=== PATIENT | female | born 1970 | race Caucasian/White ===

== ENCOUNTER → 2016-07-28 | Day surgery (SDC) | payer BC ==
[2016-07-19 14:31] VITALS: Ht 166.4 cm; Wt 90.9 kg
[~2016-07-28] VITALS: Ht 166.4 cm; Wt 90.9 kg
[~2016-07-28] MED LIST: ATROPINE SULFATE 0.1 MG/ML 5ML SYR IV PRN; DEXAMETHASONE SOD INJ 4 MG/ML VIAL ONE; EpHEDrine SULFATE INJ 50 MG/ML AMP IV PRN; FENTANYL CITRATE INJ 50 MCG/1 ML 2 ML VIAL IV PRN; FENTANYL CITRATE INJ 50 MCG/1 ML 2 ML VIAL ONE; IBUPROFEN 200 MG TAB ONE; IBUPROFEN 600 MG TAB PO PRN; KETOROLAC TROMETHAMINE 30 MG/ML VIAL IV. PRN; KETOROLAC TROMETHAMINE 30 MG/ML VIAL ONE; LACTATED RINGER'S 1000ML 1,000 ML IV SCH; LIDOCAINE HCL 2% 2 ML VIAL (20MG/ML) ONE; METOCLOPRAMIDE HCL INJ 5 MG/ML 2 ML VIAL IV PRN; MIDAZOLAM HCL 1 MG/ML 2ML VIAL ONE; ONDANSETRON INJ 2 MG/ML 2 ML VIAL IV PRN; ONDANSETRON INJ 2 MG/ML 2 ML VIAL ONE; OXYCODONE/ACETAMINOPHEN 5-325 TAB PO PRN; PROPOFOL IV EMULSION 10 MG/ML 20 ML VIAL IV ONE; SODIUM CHLORIDE 0.9% 1000ML 1,000 ML IV SCH
--- NOTE | 2016-07-28 07:06 | History & Physical Bridge - [place] ---
H&P Re-Evaluation Bridge Note: I have examined the patient, reviewed the History & Physical and in the interval since the performance of the History & Physical I have noted the following changes of clinical significance: No changes noted
--- NOTE | 2016-07-28 07:09 | Discharge Instructions-SurgCtr ---
Discharge Instructions Date of Service Jul 28, 2016. Visit Reason for Visit: Abnormal Menses Discharge Discharge Diagnosis / Problem: Hysteroscopy D&C Discharge Goals Goal(s): Specific goals Activity Recommendations Activity Limitations: per Instructions/Follow-up section Lifting Limitations: none Anesthesia . Post Anesthesia Instructions: If you have had General Anesthesia or IV Sedation: * Do not drive today. * Resume driving when surgeon permits. * Do not make important decisions or sign legal documents today. * Call surgeon for: 1. Temperature elevations greater than 101 degrees F. 2. Uncontrollable pain. 3. Excessive bleeding. 4. Persistent nausea and vomiting. 5. Medication intolerance (nausea, vomiting or rash). * For nausea and vomiting use only clear liquids such as: tea, soda, bouillon until nausea subsides, then gradually increase diet as tolerated. * If you have any concerns or questions, call your surgeon's office. If physician is unavailable and it is an emergency, call 911 or go to the nearest emergency room. . Instructions / Follow-Up Instructions / Follow-Up ACTIVITY RECOMMENDATIONS: * Avoid tampons, douching, hot tubs, pools, and intercourse until bleeding has stopped. * May shower as usual. * No strenuous activity for 24-48 hours. After 24-48 hours, you may do anything you feel like doing (driving and sports are okay). SPECIAL CARE INSTRUCTIONS: Special Diet: * Mild nausea may occur in the immediate post-operative period. * Take clear liquids such as tea, cola or bouillon until all nausea has subsided; you may then resume your normal diet. Special Care: * Light bleeding and vaginal spotting can last from a few days to 3-4 weeks. Call your doctor if bleeding becomes heavier than the heaviest part of your period. * Check your temperature twice a day for one week. If it goes above 100.4 degrees Fahrenheit (38.0 Celsius), notify your doctor. * Call your doctor's office for an appointment for 6 weeks after your surgery. FOLLOW-UP VISIT: Call your doctor's office for an appointment for 6 weeks after your surgery. Diet Recommendations Home Diet: resume previous diet Pending Studies Studies pending at discharge: no Medical Emergencies . Who to Call and When: Medical Emergencies: If at any time you feel your situation is an emergency, please call 911 immediately. . Non-Emergent Contact Non-Emergency issues call your: Primary Care Provider . . "Provider Documentation" section prepared by Pratima Miller.
--- NOTE | 2016-07-28 07:44 | [facility] Post Operative Brief Note ---
Immediate Operative Summary Operative Date Jul 28, 2016. Pre-Operative Diagnosis Abnormal Menses Post-Operative Diagnosis Same Procedure(s) Performed Dilatation And Curettage, Hysteroscopy, Polypectomy Surgeon Dr. Miller Miller Kiln Dried Salt Surgeon(s) None Estimated Blood Loss 15 mL Findings polypoid tissue in endometrial cavity. Ostia seen bilaterally. Specimens A. Endometrial Curettings and Polyp Complication(s) None Disposition Recovery Room / PACU
--- NOTE | 2016-07-28 08:03 | OPERATIVE REPORT ---
DATE OF OPERATION: 07/28/2016 PREOPERATIVE DIAGNOSIS: Abnormal menses. POSTOPERATIVE DIAGNOSIS: Same. PROCEDURE: Dilation and curettage, hysteroscopy with polypectomy. SURGEON: Dr. Miller. MILL WASHER: None. ESTIMATED BLOOD LOSS: 15 mL. FINDINGS: Polypoid tissue in endometrial cavity with ostia seen bilaterally. SPECIMENS: Endometrial curettings and polyp. COMPLICATIONS: None. DISPOSITION: Stable to recovery room. DESCRIPTION: Emilia was placed on the table in the dorsal lithotomy position using candy-cane stirrups, prepped and draped in standard sterile fashion and a hard time-out was taken prior to proceeding. Bimanual examination revealed a normal sized, anteverted uterus, sounded uterus to 8 cm. The cervix was serially dilated to allow passage of the hysteroscope, which was introduced to the fundus. Initially a false passage was seen which was created by dilation; however, the correct cavity was able to be easily identified. Hysteroscope was introduced. Polyps were seen as well as ostia bilaterally. The scope was removed. Using the pathway identified as correct by the hysteroscope the curettage was then carried out retrieving some polypoid endometrial tissue. The scope was reintroduced. The cavity was seen to be well curette all around. All instruments were removed and the patient was transferred to the recovery room in stable condition. Deficit was noted to be 220 mL of normal saline. EBL was 15. I attest to the content of the Intraoperative Record and any orders documented therein. Any exceptio ns are noted below.
[2016-07-28 08:56] VITALS: TEMP 36.5
[2016-07-28 09:21] VITALS: BP 154/95; PULSE 84; O2SAT 99
--- NOTE | 2016-07-28 09:38 | Anesthesia Progress Nt - [facility] ---
Anesthesia Post Op Note Date & Time Jul 28, 2016 at 09:38 Vital Signs Pain Intensity: 3 Vital Signs Past 12 Hours Date Time Temp Pulse Resp B/P Pulse Ox O2 Delivery O2 Flow Rate FiO2 07/28/16 09:21 84 18 154/95 99 Room Air 07/28/16 08:56 36.5 80 18 163/92 96 Room Air 07/28/16 08:46 76 12 97 07/28/16 08:46 36.4 07/28/16 08:46 75 12 152/92 95 07/28/16 08:41 73 4 140/95 96 07/28/16 08:41 74 4 07/28/16 08:40 154/98 07/28/16 08:38 151/108 07/28/16 08:36 82 6 07/28/16 08:36 83 6 151/94 96 07/28/16 08:31 80 7 141/104 98 07/28/16 08:31 78 7 07/28/16 08:30 152/97 07/28/16 08:27 152/97 07/28/16 08:26 78 3 07/28/16 08:26 79 3 165/114 98 07/28/16 08:21 75 10 07/28/16 08:21 76 10 161/84 100 07/28/16 08:16 81 16 07/28/16 08:16 83 16 182/97 100 07/28/16 08:13 163/104 07/28/16 08:11 80 12 177/101 100 07/28/16 08:11 79 12 07/28/16 08:06 74 6 135/88 100 07/28/16 08:06 75 6 07/28/16 08:01 91 18 07/28/16 08:01 100 18 100 07/28/16 08:00 36.4 78 16 128/88 100 Diffusion Mask 8 07/28/16 06:33 37.0 95 18 141/92 95 Room Air Notes Mental Status: alert / awake / arousable, participated in evaluation Pt Amnestic to Procedure: Yes Nausea / Vomiting: adequately controlled Pain: adequately controlled Airway Patency, RR, SpO2: stable & adequate BP & HR: stable & adequate Hydration State: stable & adequate Anesthetic Complications: no major complications apparent
== END | disposition home or self-care (01) ==
LOC: X.SURG 06:15
PROVIDERS: ATTEND Obstetrics & Gynecology
DX: N84.0 Polyp of corpus uteri (principal); N92.5 Other specified irregular menstruation